=== PATIENT | female | born 1995 | race Caucasian/White ===

== ENCOUNTER 2018-01-08 11:55 | Day surgery (SDC) | payer OTHER ==
[~2018-01-08] VITALS: Ht 160 cm; Wt 103.5 kg
[2018-01-08 12:26] LABS: BASOPHILS # (AUTO) 0.03 x10^3/uL (0-0.1); BASOPHILS % (AUTO) 0 % (0-1); EOSINOPHILS % (AUTO) 2 % (1-7); LYMPHOCYTES # (AUTO) 2.58 x10^3/uL (1-3.4); LYMPHOCYTES % (AUTO) 19 % (22-44); MD NO; MEAN CORPUSCULAR HEMOGLOBIN 28.7 pg (27.0-34.8); MEAN CORPUSCULAR VOLUME 84.5 fL (80-100); MEAN PLATELET VOLUME 8.4 fL (7.4-10.4); MONOCYTES # (AUTO) 0.55 x10^3/uL (0.2-0.8); MONOCYTES % (AUTO) 4 % (2-9); NEUTROPHILS % (AUTO) 75 % (42-75); PLATELET COUNT 337 x10^3/uL (130-400); RED BLOOD COUNT 5.23 x10^6/uL (3.82-5.3); RED CELL DISTRIBUTION WIDTH 14.1 % (9.6-15.2)
[2018-01-08 12:38] LABS: ALANINE AMINOTRANSFERASE 52 U/L (12-78); ALBUMIN 3.8 g/dL (3.4-5.0); ANION GAP 10 mmol/L (5-15); CHLORIDE 106 mmol/L (98-107); CREATININE 0.87 mg/dL (0.55-1.02)
[2018-01-08 12:41] LABS: CULTURE INDICATED? YES; MICROSCOPIC INDICATED
[2018-01-08 12:42] LABS: ALKALINE PHOSPHATASE 76 U/L (45-117); BILIRUBIN,TOTAL 0.3 mg/dL (0.2-1.0); TOTAL PROTEIN 8.6 g/dL (6.4-8.2)
[2018-01-08] MEDS ORDERED: SODIUM CHLORIDE FLUSH 10ML SYR IVF ONE (14:30)
[2018-01-08] MEDS ORDERED: OMNIPAQUE 350 MG/ML, 100ML BOTTLE ONE (15:08)
[2018-01-08] MEDS ORDERED: CEFOTETAN PMX 1GM/50ML 50 ML ONE (16:54)
[2018-01-08] MEDS ORDERED: SODIUM CHLORIDE FLUSH 10ML SYR IVF PRN (17:00)
[2018-01-08] MEDS ORDERED: SODIUM CHLORIDE 0.9% 1,000ML IVBOLUS ONE (17:00)
[2018-01-08] MEDS ORDERED: CEFOTETAN PMX 1GM/50ML 50 ML IVPB ONE (17:00)
[2018-01-08 18:28] VITALS: BP 140/98
[2018-01-08] MEDS ORDERED: BUPIVACAINE/PF 0.5% ONE (19:33)
[2018-01-08] MEDS ORDERED: SCOPOLAMINE PATCH, 1.5MG PATCH.TD72 TD ONE (19:41)
[2018-01-08] MEDS ORDERED: MIDAZOLAM 1 MG/ML, 2ML ONE (19:43)
[2018-01-08] MEDS ORDERED: FENTANYL PF 100 MCG/2ML ONE (19:43)
[2018-01-08] MEDS ORDERED: LABETALOL 5MG/ML, 20ML ONE (19:48)
[2018-01-08] MEDS ORDERED: ROCURONIUM 10 MG/ML,10ML ONE (19:48)
[2018-01-08] MEDS ORDERED: PROPOFOL 10 MG/ML, 20ML ONE (19:48)
[2018-01-08] MEDS ORDERED: DEXAMETHASONE 4 MG/ML, 1ML ONE (19:48)
[2018-01-08] MEDS ORDERED: CEFAZOLIN 1,000 MG ONE (19:48)
[2018-01-08] MEDS ORDERED: ONDANSETRON 2MG/ML, 2ML ONE (19:48)
[2018-01-08] MEDS ORDERED: SUCCINYLCHOLINE 20 MG/ML, 10ML ONE (19:48)
[2018-01-08] MEDS ORDERED: MEPERIDINE/PF 50 MG/ML ONE (20:31)
[2018-01-08] MEDS ORDERED: ACETAMINOPHEN 650 MG/20.3 ML UDC ONE (21:18)
[2018-01-08] MEDS ORDERED: OXYcodone 5 MG/5 ML ORAL.SOL UDC ONE (21:18)
[2018-01-08] MEDS ORDERED: HYDROmorphone 1 MG/ML, 1ML IV PRN (21:30)
[2018-01-08] MEDS ORDERED: MEPERIDINE/PF 25MG/0.5ML IVPush PRN (21:30)
[2018-01-08] MEDS ORDERED: FENTANYL PF 100 MCG/2ML IV PRN (21:30)
[2018-01-08] MEDS ORDERED: ONDANSETRON 2MG/ML, 2ML IV PRN (21:30)
[2018-01-08] MEDS ORDERED: OXYcodone 5 MG/5 ML ORAL.SOL UDC PO PRN ×2 (21:30→22:30)
[2018-01-08] MEDS ORDERED: ACETAMINOPHEN 325 MG TABLET PO PRN (21:30)
[2018-01-08] MEDS ORDERED: OXYC-302 PO (21:46)
[2018-01-08] MEDS ORDERED: LACTATED RINGERS 1,000 ML IV SCH (22:30)
[2018-01-08 23:31] VITALS: BP 135/77
== END 2018-01-08 23:45 | disposition home or self-care (01) ==
LOC: ED 13:21 → UNDOADMIN 16:58 → EDIP 16:58 → 4NOR 18:10 → EDIP 18:10 → OR 21:52 → UNDODISIN 23:45
PROVIDERS: ATTEND Registered Nurse Medical-Surgical
DX: K81.0 Acute cholecystitis (principal); I10 Essential (primary) hypertension; E66.01 Morbid (severe) obesity due to excess calories; Z68.41 Body mass index [BMI] 40.0-44.9, adult
CPT/HCPCS: 36415; 47562; 74021; 74177; 80053; 81001; 83690; 84703; 85025; 87086; 88304; 99285; J0330; J0690; J1100; J2175; J2250; J2405; J2704; J3010; J3490; J7030; Q9967; S0074